=== PATIENT | male | born 1990 | race Caucasian/White ===

== ENCOUNTER 2024-12-07 21:58 | Emergency (ER) | payer OTHER, SELFPAY ==
[2024-12-07 22:00] VITALS: BP 140/82; PULSE 88; RESP 16; TEMP 36.6; O2SAT 96
--- NOTE | 2024-12-07 23:19 | ED.EYEPROB ---
HPI - Eye Problem General Chief complaint: Eye Problems Stated complaint: spark to eye Time Seen by Provider: 12/07/24 22:37 History of Present Illness HPI Narrative: 34-year-old male presenting with ocular foreign body. 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 He felt something go into his eye approximately 10:00 a.m. yesterday. Not sure if his tetanus is up today. Believes that he has a metal object in his right eye. It is in the superior aspect of the right eye, having some sensation of ocular foreign body but no pain with visual movement or decreased visual acuity. Nose some redness in his eye and some tearing. No other systemic symptoms. He was otherwise in his normal state of health. Related Data Allergies Allergy/AdvReac Type Severity Reaction Status Date / Time No Known Allergies Allergy Verified 12/07/24 21:59 Review of Systems Review of Systems: As reviewed above in HPI Exam Narrative: GENERAL: [Well-appearing, well-nourished, and in no acute distress.] HEAD: [Normocephalic, atraumatic.] EYES: Pupils are 3 mm and reactive bilaterally, extraocular movements are intact without any impairment, visualized foreign body in the right anterior cornea superior to the visual axis. Pain relieved with tetracaine, negative fluorescein stain for any Trena sign or abrasion otherwise. 20/25 L, 20/30 R ENT: Nares clear, no rhinorrhea or epistaxis. Mucous membranes moist. NECK: Supple. CHEST: No respiratory distress, nonlabored respirations, symmetric chest rise ABDOMEN: [Soft, nondistended], [nontender], [No rigidity or guarding] EXTREMITIES: Normal range of motion. [No edema.] SKIN: Warm, dry, no rash. NEURO: [No focal deficits]. Alert and oriented [x3.] PSYCH: [Normal mood and affect.] Course Vital Signs Vital signs: Vital Signs Temperature 36.6 C 12/07/24 22:00 Pulse Rate 88 12/07/24 22:00 Respiratory Rate 16 12/07/24 22:00 Blood Pressure 140/82 12/07/24 22:00 Pulse Oximetry 96 12/07/24 22:00 Oxygen Delivery Room Air 12/07/24 22:00 Temperature 36.6 C 12/07/24 22:00 Pulse Rate 88 12/07/24 22:00 Respiratory Rate 16 12/07/24 22:00 Blood Pressure 140/82 12/07/24 22:00 Pulse Oximetry 96 12/07/24 22:00 Oxygen Delivery Room Air 12/07/24 22:00 Procedures Foreign Body Removal Foreign Body #1: Foreign Body Removal Date: 12/07/24 Foreign Body Removal Time: 23:15 Time Out Performed: yes Site: right and other (Cornea) Description of foreign body: other (Rust ring) Sedation/Analgesia: none Technique: manual removal and irrigation Confirmed by:: direct visualization Complications: none Post-procedure exam: awake, alert, normal BP, normal HR and normal O2 sat Neurovascular: normal distal pulse, normal capillary fill and no change from pre-procedure Foreign Body Removal Narrative: Foreign body was visualized in the right anterior cornea outside the visual axis and appears to be a rust ring. Directly visualized under slit-lamp examination and removed with burring utilizing a 23 gauge needle with removal of the vast majority of the rest ring, residual minor rest left over with improvement in symptoms. Irrigated copiously. Patient tolerated procedure well. MDM - Eye Problem MDM Narrative Medical decision making narrative: 34-year-old male presenting with ocular foreign body. 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 He felt something go into his eye approximately 10:00 a.m. yesterday. Not sure if his tetanus is up today. Believes that he has a metal object in his right eye. It is in the superior aspect of the right eye, having some sensation of ocular foreign body but no pain with visual movement or decreased visual acuity. Nose some redness in his eye and some tearing. No other systemic symptoms. He was otherwise in his normal state of health. Pupils are 3 mm and reactive bilaterally, extraocular movements are intact without any impairment, visualized foreign body in the right anterior cornea superior to the visual axis. Pain relieved with tetracaine, negative fluorescein stain for any Trena sign or abrasion otherwise. Tetanus was ordered, foreign object was removed under slit-lamp examination with successful removal of a rust ring utilizing 23 gauge needle burring with improvement in symptoms. Very small amount of residual rust unable to be removed, patient was given moxifloxacin eyedrops and instructed to follow-up with Ophthalmology in the next 48 hours and given referrals to [facility] ophthalmology and [facility] here in [place]. He will be sent home with topical Toradol and moxifloxacin, return precautions and discharge instructions. Medical Records Attestation: I reviewed the patient's medical records. Discharge Plan Discharge Clinical Impression: Rust ring of right cornea due to metallic foreign body Patient Disposition: Home Condition: Stable Instructions: Antibiotic Form, Eye Foreign Body (ED) Additional Instructions: We removed a corneal rust ring foreign body out of your right eye. There is some small amounts of residual rust in the area that can reaccumulate rust rings and needs to be followed up with by an eye doctor which we will refer you to 3 clinics to obtain follow-up with whichever can see you first. Contact them tomorrow for a close follow-up appointment in the next couple days. We will send you home with topical eyedrops for pain as well as topical antibiotics prevent infection. You may also take oral anti-inflammatory such as Tylenol and ibuprofen. Do not wear any contact lenses. Return with any emergent concerns such as worsening pain, vision loss, fevers, headaches or any other concerns. Patient Language: Khmer Prescriptions: New moxifloxacin 0.5 % drops 1 drp RIGHT EYE TID 7 Days Qty: 3 0RF ketorolac 0.4 % drops 1 drp RIGHT EYE Q6H PRN (Reason: pain) 4 Days Qty: 5 0RF Follow-up/Referrals: [facility] [Other] - 2 Days (rust ring removal, ED follow up) [facility] [Outside] - 2 Days (Rust ring removal) [facility] [Outside] - 2 Days (Rust ring removal) UNKNOWN,DOCTOR [Non-Staff] - Time of Disposition: 23:37
--- OUTSIDE RECORDS SUMMARY | 2024-12-07 23:24 | XMS_ITS | Clinical Summary ---
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 30 Tablet 3 0 Active Active Problems Problem Noted Date Diagnosed Date Numbness and tingling in right hand 10/11/2019 Tobacco use 10/11/2019 Family History Medical History Relation Name Comments Cancer Father Bassam when i was 16 from bone and lung cancer. 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 Aneurysm Maternal Grandmother High Cholesterol Mother Hypertension Mother Relation Name Status Comments Father Bassam Maternal Grandfather Maternal Grandmother Mother Alive Paternal Grandfather Paternal Grandmother Social History Tobacco Use Types Packs/Day Years Used Date Smoking Tobacco: Light Smoker Cigarettes 0.3 15 Smokeless Tobacco: Never Alcohol Use Standard Drinks/Week Comments Never 0 (1 standard drink = 0.6 oz pur e alcohol) Sex and Gender Information Value Date Recorded Sex Assigned at Not on file Legal Sex Male 8:55 AM CDT Gender Identity Not on file Sexual Orientation Not on file Last Filed Vital Signs Vital Sign Reading Time Taken Comments Blood Pressure 110/70 10/10/2019 3:09 PM CDT Pulse 77 10/10/2019 3:09 PM CDT Temperature 37.2 C (98.9 F) 10/10/2019 3:09 PM CDT Respiratory Rate 16 10/10/2019 3:09 PM CDT Oxygen Saturation 97% 10/10/2019 3:09 PM CDT Inhaled Oxygen Concentration - - Weight 65.3 kg (144 lb 0.6 oz) 10/10/2019 3:09 P M CDT Height 167.6 cm (5' 6) 10/10/2019 3:09 PM CDT Body Mass Index 23.25 10/10/2019 3:09 PM CDT Plan of Treatment Health Maintenance Due Date Last Done Comments HPV VACCINES (1 - Male 3-dose series) 08/07/2003 DTAP/TDAP/TD VACCINES (1 - Tdap) 08/07/2007 HEPATITIS B VACCINES (1 of 3 - 19+ 3-dose series) 10/2007 Preventative Visit- Commercial 05/02/2024 10/10/2019 INFLUENZA VACCINE (#1) 2024 Insurance [employer] BLUE ACCESS/TRUE BLUE PPO Care Teams Auto 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
--- NOTE | 2024-12-07 23:38 | PC.NURSE ---
Right eye irrigated at the [facility] by FERNIE.
[2024-12-08] MEDS: TETANUS,DIPHTHERIA,AC PERTUSSIS ADULT (0.5 ML) BOOSTRIX IM (00:14)
== END 2024-12-08 00:20 | disposition home or self-care (01) ==
PROVIDERS: Emergency Provider Student in an Organized Health Care Education/Training Program
DX: T15.01XA Foreign body in cornea, right eye, initial encounter (principal); W44.D9XA Other magnetic metal objects entering into or through a natural orifice, initial encounter; Z23 Encounter for immunization
CPT/HCPCS: 65220; 90471; 90715; 99283; A9270